=== PATIENT | male | born 1940 | race Caucasian/White ===

== ENCOUNTER 2022-11-18 10:45 | Day surgery (SDC) | payer MEDICARE, BC ==
[~2022-11-18] VITALS: Ht 177.8 cm; Wt 80.0 kg
[~2022-11-18 10:45] MED LIST: ADV50100 INH; TIOT18CA7 IH
[2022-11-18 11:19] VITALS: BP 103/63
[2022-11-18] MEDS ORDERED: POTA10CA45 PO (11:52)
[2022-11-18] MEDS ORDERED: FURO20TA4 PO (11:52)
[2022-11-18] MEDS ORDERED: OMEP20CA16 PO (11:52)
[2022-11-18] MEDS ORDERED: LATA2.5D14 EACHEYE (11:52)
[2022-11-18] MEDS ORDERED: HYDR453.3 (11:52)
[2022-11-18] MEDS ORDERED: ASPI-955 PO (11:54)
[2022-11-18] MEDS ORDERED: CYAN100T47 PO (11:56)
[2022-11-18] MEDS ORDERED: MULT-1085 PO (11:56)
[2022-11-18] MEDS ORDERED: ASCO500C12 PO (11:57)
[2022-11-18] MEDS ORDERED: CHOL10008 PO (11:59)
[2022-11-18] MEDS ORDERED: CALCIUM GUMMY PO (12:00)
[2022-11-18] MEDS ORDERED: VITA400T10 PO (12:00)
[2022-11-18] MEDS ORDERED: OXYGEN NASALCANN (12:01)
[2022-11-18] MEDS ORDERED: MIDAZolam 1 MG/ML 5ML VIAL ONE (12:14)
[2022-11-18] MEDS ORDERED: FENTANYL CITRATE/PF 50 MCG/1 ML VIAL ONE (12:14)
[2022-11-18] MEDS ORDERED: LIDOcaine Viscous 15ml cup ONE (13:41)
[2022-11-18 14:35] VITALS: BP 105/62
[2022-11-18 14:45] VITALS: BP 96/64
[2022-11-18 14:55] VITALS: BP 103/68
[2022-11-18 15:05] VITALS: BP 105/65
== END 2022-11-18 15:35 | disposition home or self-care (01) ==
LOC: GI LAB 10:45
PROVIDERS: ATTEND Internal Medicine Gastroenterology
DX: K52.9 Noninfective gastroenteritis and colitis, unspecified (principal); K63.89 Other specified diseases of intestine; D50.9 Iron deficiency anemia, unspecified; K31.89 Other diseases of stomach and duodenum; Z86.010 Personal history of colon polyps
CPT/HCPCS: 43239; 45380; 99153; G0500; J2250; J3010; J7030; Z7512; 88305; 88313; 99152; A4620